=== PATIENT | male | born 1990 | race Caucasian/White ===

== ENCOUNTER 2019-03-13 14:41 | Emergency (ER) | payer OTHER ==
[~2019-03-13] VITALS: Ht 185.4 cm; Wt 121.1 kg
[~2019-03-13 14:41] MED LIST: MUCINEX TA600 MG/TAB PO; NAPROSYN500 MG PO; NOHOMEMEDICATIONS
[2019-03-13] MEDS ORDERED: NORCO 5-325 TA1 EACH PO (15:28)
[2019-03-13] MEDS ORDERED: KEFLEX500 M1 PO (15:28)
[2019-03-13 16:04] VITALS: BP 128/84
== END 2019-03-13 16:15 | disposition home or self-care (01) ==
LOC: ER 14:41
DX: S51.812A Laceration without foreign body of left forearm, initial encounter (principal); S09.8XXA Other specified injuries of head, initial encounter; Z23 Encounter for immunization; M41.9 Scoliosis, unspecified; V89.2XXA Person injured in unspecified motor-vehicle accident, traffic, initial encounter; Y92.89 Other specified places as the place of occurrence of the external cause; Y93.89 Activity, other specified; Y99.8 Other external cause status